=== PATIENT | male | born 1955 | race African-American/Black ===

== ENCOUNTER 2016-08-31 12:59 | Inpatient (IN) | payer BC ==
[2016-08-31 15:23] VITALS: BMI 23.7
--- NOTE | 2016-08-31 18:52 | HP ---
CIWA Score - CIWA Score Nausea/Vomitin-Mild Nausea/No Vomiting Muscle Tremors: 4-Moderate,w/Arms Extend Anxiety: 4-Mod. Anxious/Guarded Agitation: 4-Moderately Restless Paroxysmal Sweats: 1-Minimal Palms Moist Orientation: 1-Uncertain about Date Tacttile Disturbances: 0-None Auditory Disturbances: 0-None Visual Disturbances: 0-None Headache: 1-Very Mild CIWA-Ar Total Score: 16 Admission ROS BHS - HPI Chief Complaint: WITHDRAWAL SX Allergies/Adverse Reactions: Allergies Allergy/AdvReac Type Severity Reaction Status Date / Time No Known Drug Allergies Allergy Verified 08/31/16 18:17 nka Allergy Uncoded 08/31/16 18:17 History of Present Illness: 61 YEARS OLD MALE WITH LONG HISTORY OF ALCOHOL NICOTINE DEPENDENCE AMBULATION WITH TWO CANE X15 YEARS HAS BIPOLAR II IS ADMITTED TO DETOX Exam Limitations: No Limitations - Ebola screening Have you traveled outside of the country in the last 21 days: No Have you had contact with anyone from an Ebola affected area: No Have you been sick,other than usual withdrawal symptoms: No Do you have a fever: No - Review of Systems Constitutional: Chills, Loss of Appetite, Changes in sleep, Unintentional Wgt. Loss, Unexplained wgt Loss EENT: reports: Dental Problems (MULTIPLE TEETH MISSING) Respiratory: reports: SOB with Exertion, Productive cough Cardiac: reports: No Symptoms Reported GI: reports: Nausea, Poor Appetite, Poor Fluid Intake, Abdominal cramping : reports: No Symptoms Reported Musculoskeletal: reports: Back Pain, Joint Pain (LEGS), Muscle Weakness (BOTH LEGS), Neck Pain, Other (LEFT 2 FINGERS AMPUTEE) Integumentary: reports: Change in Color (LEFT ORBITAL FELL 08/22/[address] HEAD), Erythema (FELL 08/22/16) Neuro: reports: No Symptoms reported, Tremors Endocrine: reports: No Symptoms Reported Hematology: reports: Blood Clots (RIGHT INGROIN FILTER) Psychiatric: reports: Judgement Intact, Anxious, Depressed Other Systems: Reviewed and Negative Patient History - Patient Medical History Hx Anemia: No Hx Asthma: No Hx Chronic Obstructive Pulmonary Disease (COPD): Yes Hx Cancer: No Hx Cardiac Disorders: No Hx Congestive Heart Failure: No Hx Hypertension: No Hx Hypercholesterolemia: No Hx Pacemaker: No HX Cerebrovascular Accident: No Hx Seizures: Yes (ETOH RLT 2016) Hx Dementia: No Hx Diabetes: No Hx Gastrointestinal Disorders: No Hx Liver Disease: No Hx Genitourinary Disorders: No Hx Sexually Transmitted Disorders: No Hx Renal Disease (ESRD): No Hx Thyroid Disease: No Hx Human Immunodeficiency Virus (HIV): No Hx Hepatitis C: No Hx Depression: No Hx Suicide Attempt: Yes (2001 [employer]AN T[employer]ARD [employer]) Hx Bipolar Disorder: Yes Hx Schizophrenia: No - Patient Surgical History Past Surgical History: Yes Hx Neurologic Surgery: Yes (SPINAL SURGERY 2006) Hx Cataract Extraction: No Hx Cardiac Surgery: No Hx Lung Surgery: No Hx Breast Surgery: No Hx Breast Biopsy: No Hx Abdominal Surgery: Yes (RIGHT LEG FILTER) Hx Appendectomy: No Hx Cholecystectomy: No Hx Genitourinary Surgery: No Hx Orthopedic Surgery: Yes (FACIAL/ JAW SURGERY - Dec) Other Surgical History: LEFT 4TH AND 5TH FINGER AMPUATION- 2010 Anesthesia Reaction: No - PPD History Previous Implant?: Yes Documented Results: Negative w/o proof Implanted On Prior R Admission?: Yes Results: 0MM PPD to be Administered?: Yes - Smoking Cessation Smoking history: Current every day smoker Have you smoked in the past 12 months: Yes Aproximately how many cigarettes per day: 10 Cigars Per Day: 0 Hx Chewing Tobacco Use: No Initiated information on smoking cessation: Yes 'Breaking Loose' booklet given: 08/31/16 - Substance & Tx. History Hx Alcohol Use: Yes Hx Substance Use: No Substance Use Type: Alcohol Hx Substance Use Treatment: Yes - Substances Abused Alcohol Route: Oral Frequency: Daily Amount used: VODKA -3PTS 6 PK BEER Age of first use: 12 Date of Last Use: 08/30/16 Family Disease History - Family Disease History Family Disease History: CA: Grandparent (), Father (), Other: Brother (SHOT) Admission Physical Exam BHS - Vital Signs Vital Signs: Vital Signs - 24 hr 08/31/16 15:22 Temperature 98 F Pulse Rate 111 H Respiratory 20 Rate Blood Pressure 109/66 - Physical General Appearance: Yes: Appropriately Dressed, Mild Distress, Thin, Tremorous, Irritable, Sweating, Anxious HEENTM: Yes: Hearing grossly Normal, Normal ENT Inspection, Normocephalic, Normal Voice Respiratory: Yes: Chest Non-Tender, Lungs Clear, Normal Breath Sounds, No Respiratory Distress, No Accessory Muscle Use Neck: Yes: Supple, Trachea in good position Breast: Yes: Breasts Symetrical Cardiology: Yes: Regular Rhythm, S1, S2, Tachycardia Abdominal: Yes: Non Tender, Soft Genitourinary: Yes: Within Normal Limits Back: Yes: Normal Inspection Musculoskeletal: Yes: full range of Motion, Gait Steady (TWO CANES), Back pain, Muscle Pain, Muscle weakness (LEGS) Extremities: Yes: Normal Range of Motion, Non-Tender, Tremors, Other (LEFT 2 FINGERS AMPUTEE) Neurological: Yes: Alert, Motor Strength 5/5, Normal Response, Depressed Affect Integumentary: Yes: Warm, Other (LEFT ORBITAL SKIN ABRASION HEALED) Lymphatic: Yes: Within Normal Limits - Diagnostic (1) Alcohol dependence with uncomplicated withdrawal Current Visit: Yes Status: Acute (2) Nicotine dependence Current Visit: Yes Status: Acute Qualifiers: Nicotine product type: cigarettes Substance use status: in withdrawal Qualified Code(s): F17.213 - Nicotine dependence, cigarettes, with withdrawal (3) Bipolar II disorder Current Visit: Yes Status: Suspected (4) COPD (chronic obstructive pulmonary disease) Current Visit: Yes Status: Chronic Qualifiers: COPD type: emphysema Emphysema type: other Qualified Code(s): J43.8 - Other emphysema (5) Use of cane as ambulatory aid Current Visit: Yes Status: Chronic Cleared for Admission [facility] - Detox or Rehab [facility] Level of Care: Medically Managed Detox Regimen/Protocol: Librium [facility] Breath Alcohol Content Breath Alcohol Content: 0 Urine Drug Screen - Results Drug Screen Negative: Yes
[2016-08-31] MEDS ORDERED: MAGNESIUM CITRATE 300 ML BOTTLE PO PRN (19:06)
[2016-08-31] MEDS ORDERED: MAG HYDROX/AL HYDROX/SIMETH 30 ML UNIT-DOSE CUP PO PRN (19:06)
[2016-08-31] MEDS ORDERED: MENTHOL/PHENOL 1 EACH UD MM PRN (19:06)
[2016-08-31] MEDS ORDERED: P-EPHED 60MG/TRIPROLIDI 2.5MG TABLET PO PRN (19:06)
[2016-08-31] MEDS ORDERED: ACETAMINOPHEN 325 MG TABLET (FP) PO PRN (19:06)
[2016-08-31] MEDS ORDERED: chlordiazePOXIDE HCL 25 MG CAPSULE PO PRN (19:06)
[2016-08-31] MEDS ORDERED: IBUPROFEN 400 MG TABLET (FP) PO PRN (19:06)
[2016-08-31] MEDS ORDERED: MAGNESIUM HYDROX 2400MG/30ML ORAL SUSPENSION 30 ML CUP PO PRN (19:06)
[2016-08-31] MEDS ORDERED: NICOTINE POLACRILEX 2 MG GUM BC PRN (19:06)
[2016-08-31] MEDS ORDERED: LOPERAMIDE HCL 2 MG CAPSULE PO PRN (19:06)
[2016-08-31] MEDS ORDERED: guaiFENesin/D-METHORPHAN HB 10 ML UNIT-DOSE CUPS PO PRN (19:06)
[2016-08-31] MEDS ORDERED: hydrOXYzine PAMOATE 50 MG CAPSULE (FP) PO PRN (19:06)
[2016-08-31] MEDS ORDERED: ALBUTEROL SO4 2.5/IPRATROPIUM 0.5 INH SOL 3 ML VIAL.NEB. NEB PRN (19:08)
[2016-08-31] MEDS ORDERED: ALBUTEROL SO4 6.7 GM HFA INHALER IH PRN (19:08)
[2016-08-31] MEDS: THIAMINE HCL 100 MG TABLET (FP) PO SCH (22:07)
[2016-08-31] MEDS: diphenhydrAMINE HCL 50 MG CAPSULE PO PRN (22:07)
[2016-08-31] MEDS: chlordiazePOXIDE HCL 25 MG CAPSULE PO SCH (22:07)
[2016-09-01] MEDS: chlordiazePOXIDE HCL 25 MG CAPSULE PO SCH ×4 (07:15→22:29)
--- NOTE | 2016-09-01 09:53 | EKG ---
Test Reason : Blood Pressure : / mmHG Vent. Rate : 091 BPM Atrial Rate : 091 BPM P-R Int : 180 ms QRS Dur : 080 ms QT Int : 396 ms P-R-T Axes : 066 061 060 degrees QTc Int : 487 ms NORMAL SINUS RHYTHM PROLONGED QT ABNORMAL ECG NO PREVIOUS ECGS AVAILABLE Confirmed by CLAUDETTE MASCORRO MD ([id number]) on 09/01/2016 9:53:14 AM Referred By: Confirmed By:CLAUDETTE MASCORRO MD
[2016-09-01] MEDS: PRENATAL VITAMINS W/ FOLIC ACID TABLET (FP) PO SCH (10:20)
[2016-09-01] MEDS: ASPIRIN 81 MG CHEWABLE TABLETS PO SCH (10:20)
[2016-09-01] MEDS: NICOTINE 14 MG/24 HOURS TOPICAL PATCH TD SCH (10:21)
[2016-09-01 10:22] LABS: MCH 32.4 pg (25.7-33.7); MCHC 33.8 g/dl (32.0-35.9); MEAN CELL VOLUME 95.9 fl (80-96); MEAN PLT VOLUME 8.6 fl (7.5-11.1); PLATELET COUNT 359 K/MM3 (134-434); RDW 18.8 % (11.9-15.9)
[2016-09-01 10:51] LABS: ALBUMIN 4.2 g/dl (3.4-5.0); ALK PHOS 84 U/L (45-117); ANION GAP 10 (8-16); BILIRUBIN,TOTAL 0.6 mg/dL (0.2-1.0); CALCIUM 9.2 mg/dL (8.5-10.1); CO2 26 mmol/L (21-32); COCKROFT - GAULT 95.75; GLUCOSE,RANDOM 96 mg/dL (74-106); SGOT/AST 36 U/L (15-37); SGPT/ALT 22 U/L (12-78); TOT PROT 7.4 g/dl (6.4-8.2)
--- NOTE | 2016-09-01 12:46 | PN ---
S CIWA - CIWA Score Nausea/Vomitin Muscle Tremors: 4-Moderate,w/Arms Extend Anxiety: 3 Agitation: 2 Paroxysmal Sweats: 3 Orientation: 0-Oriented Tacttile Disturbances: 2-Mild Itch/Numbness/Burn Auditory Disturbances: 0-None Visual Disturbances: 3-Moderate Sensitivity Headache: 0-None Present CIWA-Ar Total Score: 19 BHS Progress Note (SOAP) Subjective: Interrupted sleep, Tremors, Body Aches, Sweating. Objective: PT. A & O X 3, OBSERVED AMBULATING WITH ASSISTANCE OF A CANE. NO ACUTE DISTRESS. 09/01/16 12:43 Vital Signs Temperature 97.1 F L 09/01/16 10:17 Pulse Rate 90 09/01/16 10:17 Respiratory Rate 20 09/01/16 10:17 Blood Pressure 136/96 09/01/16 10:17 O2 Sat by Pulse Oximetry (%) Laboratory Tests 09/01/16 09/01/16 06:00 06:00 WBC 8.0 RBC 3.86 L Hgb 12.5 Hct 37.0 MCV 95.9 MCHC 33.8 RDW 18.8 H Plt Count 359 MPV 8.6 Sodium 139 Potassium 4.0 Chloride 103 Carbon Dioxide 26 Anion Gap 10 BUN 11 Creatinine 1.0 Creat Clearance w eGFR > 60 Random Glucose 96 Calcium 9.2 Total Bilirubin 0.6 AST 36 ALT 22 Alkaline Phosphatase 84 Total Protein 7.4 Albumin 4.2 LABS NOTED. Assessment: 09/01/16 12:44 WITHDRAWAL SYMPTOMS. Plan: CONTINUE DETOX.
[2016-09-01 15:00] LABS: HIV 1 & 2 AB NEGATIVE; HIV 1 AGp24 NEGATIVE
--- NOTE | 2016-09-01 15:30 | CONSULT ---
[facility] Psychiatric Consult - Data Date of interview: 09/01/16 Admission source: [facility] Identifying data: Readmission to [facility] for this 61 y/o AA male seeking detox treatment for alcohol dependence.Patient is single,a father of one, domiciled,unemployed (disabled) and supported on SSI benefits. Substance Abuse History: - Smoking Cessation. Smoking history: Current every day smoker. Have you smoked in the past 12 months: Yes. Aproximately how many cigarettes per day: 10. Cigars Per Day: 0. Hx Chewing Tobacco Use: No. Initiated information on smoking cessation: Yes. 'Breaking Loose' booklet given : 08/31/16. - Substance & Tx. History. Hx Alcohol Use: Yes. Hx Substance Use : No. Substance Use Type: Alcohol. Hx Substance Use Treatment: Yes. - Substances Abused. Alcohol. Route: Oral. Frequency: Daily. Amount used: VODKA -3PTS 6 PK BEER. Age of first use: 12. Date of Last Use: 08/30/16. Confirmed by patient. 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 Psychiatric History: Patient admits to a history of one psychiatric hospitalization at [place],years ago.At the time,he was diagnosed with MDD.Mr Ba is not on psychotropic medications.No psychiatric OPD care for several years.Patient reports one suicide attempt (jumping into traffic) years ago. Physical/Sexual Abuse/Trauma History: Patient denies. Additional Comment: Drug Screen is negative. Mental Status Exam - Mental Status Exam Alert and Oriented to: Time, Place, Person Cognitive Function: Good Patient Appearance: Well Groomed (tall stature) Mood: Angry, Irritable Affect: Mood Congruent Patient Behavior: Uncooperative, Impulsive Speech Pattern: Clear Voice Loudness: Normal Thought Process: Goal Oriented Thought Disorder: Not Present Hallucinations: Denies Suicidal Ideation: Denies Homicidal Ideation: Denies Insight/Judgement: Poor Sleep: Well Appetite: Good Gait/Station: Other (walks with a cane) Psychiatric Findings - Problem List ([place] 1, 2,3) (1) Alcohol dependence with uncomplicated withdrawal Current Visit: Yes Status: Acute (2) Nicotine dependence Current Visit: Yes Status: Acute Qualifiers: Nicotine product type: cigarettes Substance use status: in withdrawal Qualified Code(s): F17.213 - Nicotine dependence, cigarettes, with withdrawal (3) Substance induced mood disorder Current Visit: Yes Status: Acute (4) COPD (chronic obstructive pulmonary disease) Current Visit: Yes Status: Chronic Qualifiers: COPD type: emphysema Emphysema type: other Qualified Code(s): J43.8 - Other emphysema (5) Use of cane as ambulatory aid Current Visit: Yes Status: Chronic - Initial Treatment Plan Initial Treatment Plan: Psychoeducation.Detoxification.Observation.
[2016-09-01] MEDS: THIAMINE HCL 100 MG TABLET (FP) PO SCH (22:29)
[2016-09-01] MEDS: diphenhydrAMINE HCL 50 MG CAPSULE PO PRN (22:30)
[2016-09-02] MEDS: chlordiazePOXIDE HCL 25 MG CAPSULE PO SCH ×3 (05:45→18:00)
[2016-09-02] MEDS: ASPIRIN 81 MG CHEWABLE TABLETS PO SCH (10:01)
[2016-09-02] MEDS: PRENATAL VITAMINS W/ FOLIC ACID TABLET (FP) PO SCH (10:01)
[2016-09-02] MEDS: NICOTINE 14 MG/24 HOURS TOPICAL PATCH TD SCH (10:02)
[2016-09-02 10:30] LABS: URINE APPEARANCE CLEAR; URINE BILIRUBIN NEGATIVE (NEGATIVE); URINE COLOR STRAW; URINE GLUCOSE (UA) NEGATIVE (NEGATIVE); URINE KETONE NEGATIVE (NEGATIVE); URINE LEUK ESTERASE NEGATIVE (NEGATIVE); URINE NITRITE NEGATIVE (NEGATIVE); URINE PROTEIN NEGATIVE (NEGATIVE); URINE UROBILINOGEN NEGATIVE E.U./dl (0.2-1.0)
[2016-09-02 10:35] LABS: URINE BLOOD 2+ (NEGATIVE)
[2016-09-02 10:45] LABS: URINE RBC 1 /hpf (0-3)
--- NOTE | 2016-09-02 15:20 | PN ---
[facility] CIWA - CIWA Score Nausea/Vomitin-Mild Nausea/No Vomiting Muscle Tremors: 4-Moderate,w/Arms Extend Anxiety: 3 Agitation: 1-Slight > Activity Paroxysmal Sweats: 3 Orientation: 0-Oriented Tacttile Disturbances: 3-Moderate Itch/Numb/Burn Auditory Disturbances: 2-Mild Harshness/Frighten Visual Disturbances: 0-None Headache: 0-None Present CIWA-Ar Total Score: 17 [facility] Progress Note (SOAP) Subjective: Tremors, Fatigue, Sweating. Objective: PT. A & O X 3 ,OBSERVED AMBULATING ON UNIT. NO ACUTE DISTRESS. PT. DENIES CHEST PAIN. 09/02/16 15:17 Vital Signs Temperature 97.0 F L 09/02/16 13:04 Pulse Rate 92 H 09/02/16 13:04 Respiratory Rate 20 09/02/16 13:04 Blood Pressure 145/93 09/02/16 13:04 O2 Sat by Pulse Oximetry (%) Laboratory Tests 09/01/16 09/01/16 09/01/16 06:00 06:00 06:00 WBC 8.0 RBC 3.86 L Hgb 12.5 Hct 37.0 MCV 95.9 MCHC 33.8 RDW 18.8 H Plt Count 359 MPV 8.6 Sodium 139 Potassium 4.0 Chloride 103 Carbon Dioxide 26 Anion Gap 10 BUN 11 Creatinine 1.0 Creat Clearance w eGFR > 60 Random Glucose 96 Calcium 9.2 Total Bilirubin 0.6 AST 36 ALT 22 Alkaline Phosphatase 84 Total Protein 7.4 Albumin 4.2 Urine Color Urine Appearance Urine pH Ur Specific [place] Urine Protein Urine Glucose (UA) Urine Ketones Urine Blood Urine Nitrite Urine Bilirubin Urine Urobilinogen Ur Leukocyte Esterase Urine RBC Urine WBC RPR Titer HIV 1&2 Antibody Screen Negative HIV P24 Antigen Negative 09/01/16 09/02/16 06:00 07:00 WBC RBC Hgb Hct MCV MCHC RDW Plt Count MPV Sodium Potassium Chloride Carbon Dioxide Anion Gap BUN Creatinine Creat Clearance w eGFR Random Glucose Calcium Total Bilirubin AST ALT Alkaline Phosphatase Total Protein Albumin Urine Color Straw Urine Appearance Clear Urine pH 6.0 Ur Specific [place] 1.010 Urine Protein Negative Urine Glucose (UA) Negative Urine Ketones Negative Urine Blood 2+ H Urine Nitrite Negative Urine Bilirubin Negative Urine Urobilinogen Negative Ur Leukocyte Esterase Negative Urine RBC 1 Urine WBC None RPR Titer Nonreactive HIV 1&2 Antibody Screen HIV P24 Antigen LABS NOTED. Assessment: 09/02/16 15:18 WITHDRAWAL SYMPTOMS. Plan: CONTINUE DETOX. REPEAT UA TOMORROW FOR ABNORMAL UA (URINE BLOOD) RESULT. CONTINUE TO MONITOR BP.
[2016-09-02] MEDS ORDERED: amLODIPine BESYLATE 5 MG TABLET (FP) PO ONE (17:52)
[2016-09-02] MEDS: chlordiazePOXIDE 5 MG CAPSULE PO SCH (22:39)
[2016-09-02] MEDS: THIAMINE HCL 100 MG TABLET (FP) PO SCH (22:39)
[2016-09-02] MEDS: diphenhydrAMINE HCL 50 MG CAPSULE PO PRN (22:40)
[2016-09-02] MEDS: amLODIPine BESYLATE 5 MG TABLET (FP) PO SCH (22:40)
[2016-09-03] MEDS: chlordiazePOXIDE 5 MG CAPSULE PO SCH ×3 (05:49→17:32)
[2016-09-03] MEDS: amLODIPine BESYLATE 5 MG TABLET (FP) PO SCH ×2 (10:30→22:32)
[2016-09-03] MEDS: NICOTINE 14 MG/24 HOURS TOPICAL PATCH TD SCH (10:30)
[2016-09-03] MEDS: ASPIRIN 81 MG CHEWABLE TABLETS PO SCH (10:30)
[2016-09-03] MEDS: PRENATAL VITAMINS W/ FOLIC ACID TABLET (FP) PO SCH (10:30)
--- NOTE | 2016-09-03 14:38 | PN ---
BHS Progress Note (SOAP) Subjective: Irritable, angry, interrupted sleep, anxious, chills Objective: 09/03/16 14:35 Last Vital Signs Temp Pulse Resp BP Pulse Ox 96.5 F L 88 18 121/68 09/03/16 13:31 09/03/16 13:31 09/03/16 13:31 09/03/16 13:31 Laboratory Tests 09/01/16 09/01/16 09/01/16 06:00 06:00 06:00 WBC 8.0 RBC 3.86 L Hgb 12.5 Hct 37.0 MCV 95.9 MCHC 33.8 RDW 18.8 H Plt Count 359 MPV 8.6 Sodium 139 Potassium 4.0 Chloride 103 Carbon Dioxide 26 Anion Gap 10 BUN 11 Creatinine 1.0 Creat Clearance w eGFR > 60 Random Glucose 96 Calcium 9.2 Total Bilirubin 0.6 AST 36 ALT 22 Alkaline Phosphatase 84 Total Protein 7.4 Albumin 4.2 Urine Color Urine Appearance Urine pH Ur Specific [place] Urine Protein Urine Glucose (UA) Urine Ketones Urine Blood Urine Nitrite Urine Bilirubin Urine Urobilinogen Ur Leukocyte Esterase Urine RBC Urine WBC RPR Titer HIV 1&2 Antibody Screen Negative HIV P24 Antigen Negative 09/01/16 09/02/16 06:00 07:00 WBC RBC Hgb Hct MCV MCHC RDW Plt Count MPV Sodium Potassium Chloride Carbon Dioxide Anion Gap BUN Creatinine Creat Clearance w eGFR Random Glucose Calcium Total Bilirubin AST ALT Alkaline Phosphatase Total Protein Albumin Urine Color Straw Urine Appearance Clear Urine pH 6.0 Ur Specific [place] 1.010 Urine Protein Negative Urine Glucose (UA) Negative Urine Ketones Negative Urine Blood 2+ H Urine Nitrite Negative Urine Bilirubin Negative Urine Urobilinogen Negative Ur Leukocyte Esterase Negative Urine RBC 1 Urine WBC None RPR Titer Nonreactive HIV 1&2 Antibody Screen HIV P24 Antigen Labs noted: UA: 2+ blood Assessment: 09/03/16 14:36 Withdrawal symptoms Noted with microscopic hematuria Plan: Continue detox Microscopic hematuria: encouraged to drink lots of water (water pitcher ordered) , repeat UA
[2016-09-03 18:01] LABS: URINE APPEARANCE CLEAR; URINE BILIRUBIN NEGATIVE (NEGATIVE); URINE BLOOD NEGATIVE (NEGATIVE); URINE COLOR LTYELLOW; URINE GLUCOSE (UA) NEGATIVE (NEGATIVE); URINE KETONE NEGATIVE (NEGATIVE); URINE LEUK ESTERASE NEGATIVE (NEGATIVE); URINE NITRITE NEGATIVE (NEGATIVE); URINE PROTEIN NEGATIVE (NEGATIVE); URINE UROBILINOGEN NEGATIVE E.U./dl (0.2-1.0)
[2016-09-03] MEDS: diphenhydrAMINE HCL 50 MG CAPSULE PO PRN (22:32)
[2016-09-03] MEDS: chlordiazePOXIDE HCL 10 MG CAPSULE PO SCH (22:32)
[2016-09-03] MEDS: THIAMINE HCL 100 MG TABLET (FP) PO SCH (22:32)
[2016-09-04] MEDS: chlordiazePOXIDE HCL 10 MG CAPSULE PO SCH ×2 (05:51→10:51)
--- NOTE | 2016-09-04 09:34 | DS ---
[facility] Detox Discharge Summary Admission Date: 08/31/16 Discharge Date: 09/04/16 - History Present History: Alcohol Dependence Pertinent Past History: COPD - Physical Exam Results Vital Signs: Vital Signs Temperature 96.7 F L 09/04/16 06:10 Pulse Rate 111 H 09/04/16 06:10 Respiratory Rate 18 09/04/16 06:10 Blood Pressure 148/97 09/04/16 06:10 O2 Sat by Pulse Oximetry (%) Pertinent Admission Physical Exam Findings: Withdrawal sx. Laboratory Last Values WBC 8.0 K/mm3 (4.0-10.0) 09/01/16 06:00 RBC 3.86 M/mm3 (4.00-5.60) L 09/01/16 06:00 Hgb 12.5 GM/dL (11.7-16.9) 09/01/16 06:00 Hct 37.0 % (35.4-49) 09/01/16 06:00 MCV 95.9 fl (80-96) 09/01/16 06:00 MCHC 33.8 g/dl (32.0-35.9) 09/01/16 06:00 RDW 18.8 % (11.9-15.9) H 09/01/16 06:00 Plt Count 359 K/MM3 (134-434) 09/01/16 06:00 MPV 8.6 fl (7.5-11.1) 09/01/16 06:00 Sodium 139 mmol/L (136-145) 09/01/16 06:00 Potassium 4.0 mmol/L (3.5-5.1) 09/01/16 06:00 Chloride 103 mmol/L (98-107) 09/01/16 06:00 Carbon Dioxide 26 mmol/L (21-32) 09/01/16 06:00 Anion Gap 10 (8-16) 09/01/16 06:00 BUN 11 mg/dL (7-18) 09/01/16 06:00 Creatinine 1.0 mg/dL (0.7-1.3) 09/01/16 06:00 Creat Clearance w eGFR > 60 (>60) 09/01/16 06:00 Random Glucose 96 mg/dL (74-106) 09/01/16 06:00 Calcium 9.2 mg/dL (8.5-10.1) 09/01/16 06:00 Total Bilirubin 0.6 mg/dL (0.2-1.0) 09/01/16 06:00 AST 36 U/L (15-37) 09/01/16 06:00 ALT 22 U/L (12-78) 09/01/16 06:00 Alkaline Phosphatase 84 U/L (45-117) 09/01/16 06:00 Total Protein 7.4 g/dl (6.4-8.2) 09/01/16 06:00 Albumin 4.2 g/dl (3.4-5.0) 09/01/16 06:00 Urine Color L[place] 09/03/16 16:06 Urine Appearance Clear 09/03/16 16:06 Urine pH 6.0 (5.0-8.0) 09/03/16 16:06 Ur Specific [place] 1.015 (1.005-1.025) 09/03/16 16:06 Urine Protein Negative (NEGATIVE) 09/03/16 16:06 Urine Glucose (UA) Negative (NEGATIVE) 09/03/16 16:06 Urine Ketones Negative (NEGATIVE) 09/03/16 16:06 Urine Blood Negative (NEGATIVE) 09/03/16 16:06 Urine Nitrite Negative (NEGATIVE) 09/03/16 16:06 Urine Bilirubin Negative (NEGATIVE) 09/03/16 16:06 Urine Urobilinogen Negative E.U./dl (0.2-1.0) 09/03/16 16:06 Ur Leukocyte Esterase Negative (NEGATIVE) 09/03/16 16:06 Urine RBC 1 /hpf (0-3) 09/02/16 07:00 Urine WBC None /hpf (3-5) 09/02/16 07:00 RPR Titer Nonreactive (NONREACTIVE) 09/01/16 06:00 HIV 1&2 Antibody Screen Negative 09/01/16 06:00 HIV P24 Antigen Negative 09/01/16 06:00 labs noted - Treatment Hospital Course: Detox Protocol Followed, Detoxed Safely, Responded well, Discharged Condition Good, Rehab Referral Accepted Patient has Accepted a Rehab Referral to: [facility] - Medication Discharge Medications: Ambulatory Orders Aspirin [ASA -] 81 mg PO DAILY 08/31/16 - Diagnosis (1) Alcohol dependence with uncomplicated withdrawal Current Visit: Yes Status: Acute (2) Nicotine dependence Current Visit: Yes Status: Acute Qualifiers: Nicotine product type: cigarettes Substance use status: in withdrawal Qualified Code(s): F17.213 - Nicotine dependence, cigarettes, with withdrawal (3) Substance induced mood disorder Current Visit: Yes Status: Acute (4) COPD (chronic obstructive pulmonary disease) Current Visit: Yes Status: Chronic Qualifiers: COPD type: emphysema Emphysema type: other Qualified Code(s): J43.8 - Other emphysema - AMA Did Patient Leave Against Medical Advice: No
[2016-09-04 09:52] VITALS: BP 141/92; PULSE 107; TEMP 97.7
[2016-09-04] MEDS: PRENATAL VITAMINS W/ FOLIC ACID TABLET (FP) PO SCH (10:14)
[2016-09-04] MEDS: amLODIPine BESYLATE 5 MG TABLET (FP) PO SCH (10:15)
[2016-09-04] MEDS: NICOTINE 14 MG/24 HOURS TOPICAL PATCH TD SCH (10:15)
[2016-09-04] MEDS: ASPIRIN 81 MG CHEWABLE TABLETS PO SCH (10:15)
== END 2016-09-04 13:45 | disposition home or self-care (01) | DRG 775 ==
LOC: YASAS 12:59 → Y3N 18:41
PROVIDERS: ADMIT Internal Medicine; ATTEND Internal Medicine
PROC: HZ2ZZZZ Detoxification Services for Substance Abuse Treatment (ICD-10-PCS; principal; 2016-09-04)
DX: F10.230 Alcohol dependence with withdrawal, uncomplicated (principal); F17.213 Nicotine dependence, cigarettes, with withdrawal; F19.24 Other psychoactive substance dependence with psychoactive substance-induced mood disorder; F31.81 Bipolar II disorder; J43.8 Other emphysema; M54.5 Low back pain; M62.81 Muscle weakness (generalized); R26.89 Other abnormalities of gait and mobility; Z99.89 Dependence on other enabling machines and devices
CPT/HCPCS: 36415; 80053; 81003; 81015; 85027; 86593; 87389; 93005; 93010